=== PATIENT | female | born 1975 | race Caucasian/White ===

== ENCOUNTER 2017-02-26 00:07 | Emergency (ER) | payer OTHER ==
[~2017-02-26] VITALS: Ht 167.6 cm; Wt 59.0 kg
[2017-02-26] MEDS ORDERED: HYDROmorphone PF 1 MG/ML DISP.SYRIN IV/SQ PRN (00:45)
[2017-02-26] MEDS ORDERED: 0.9 % SODIUM CHLORIDE 10 ML DISP.SYRIN. IV PRN (00:45)
--- NOTE | 2017-02-26 00:52 | PHYS DOC ---
Past History Past Medical History: Anxiety, Depression Past Surgical History: No Surgical History Smoking: Non-smoker Alcohol Use: None Drug Use: None Adult General Chief Complaint Chief Complaint: FLANK PAIN [facility] HPI This patient is a pleasant 41-year-old female with history of depression and anxiety who is a 002 last menstrual period is about 14 days late presents with right lower quadrant abdominal pain that began earlier today after having sexual intercourse with her . She is noted increased pain or last several hours localized in the right lower quadrant as got progressively worse with nausea without vomiting or diarrhea or dysuria urgency or frequency she said there is some pressure when she urinates but not clearly dysuria. She denies any vaginal bleeding or discharge denies any prior history of the same. She does recall a family history of ovarian cysts. She describes this pain as dull and achy without radiation to the flank or the rectum. It is not change with food or position but it is worsened with direct pressure over the abdomen. She did also say that she has some fullness there without clear distention of her abdomen. She denies any consumption of raw food, sick contacts, recent antibiotics. She's not had any travel outside the country. She's never had symptoms quite like this in the past. The patient's pain is not radiating from the flank to the abdomen. She just recently moved from [place] with her family in the last several days to [place]. Review of Systems Review of Systems Constitutional: Denies fever or chills [] Eyes: Denies change in visual acuity, redness, or eye pain [] HENT: Denies nasal congestion or sore throat [] Respiratory: Denies cough or shortness of breath [] Cardiovascular: No additional information not addressed in HPI [] GI: Planes of abdominal pain with nausea denies vomiting bloody stools or diarrhea. : Denies dysuria or hematuria she does have some mild urgency Musculoskeletal: Denies back pain or joint pain [] Integument: Denies rash or skin lesions [] Neurologic: Denies headache, focal weakness or sensory changes [] Endocrine: Denies polyuria or polydipsia [] Current Medications Current Medications Current Medications Medications (Trade) Dose Ordered Sig/Ellen Start Time Stop Time Status Last Admin Dose Admin Hydromorphone HCl (Dilaudid) 0.5 mg PRN Q15MIN PRN 02/26/17 00:45 02/27/17 00:44 UNV Ondansetron HCl (Zofran) 4 mg 1X ONCE 02/26/17 00:45 02/26/17 00:46 UNV Sodium Chloride (Normal Saline Flush) 10 ml QSHIFT PRN 02/26/17 00:45 UNV Physical Exam Physical Exam Constitutional: Well developed, well nourished, patient is icing uncomfortable and mildly stressed but nontoxic in appearance. HENT: Normocephalic, atraumatic, bilateral external ears normal, oropharynx moist, no oral exudates, nose normal. [] Eyes: PERRLA, EOMI, conjunctiva normal, no discharge. [] Neck: Normal range of motion, no tenderness, supple, no stridor. [] Cardiovascular:Heart rate regular rhythm, no murmur [] Lungs & Thorax: Bilateral breath sounds clear to auscultation [] Abdomen: Bowel sounds normal, soft, patient does have some tenderness increased bowel sounds over the right lower quadrant. There is no clear Kim's or McBurney's point tenderness to palpation or Rovsing sign or obturator sign Skin: Warm, dry, no erythema, no rash. [] Back: No tenderness, no CVA tenderness. [] Extremities: No tenderness, no cyanosis, no clubbing, ROM intact, no edema. [] Neurologic: Alert and oriented X 3, normal motor function, normal sensory function, no focal deficits noted. [] Psychologic: Affect normal, judgement normal, she is mildly anxious Current Patient Data Vital Signs Vital Sign - Last 24 Hours 02/26/17 02/26/17 00:10 01:40 Temp 98.2 Pulse 90 Resp 20 20 Pulse Ox 98 98 O2 Delivery Room Air Room Air Lab Results Laboratory Tests Test 02/26/17 00:45 02/26/17 00:59 02/26/17 01:11 Urine Collection Type Unknown Urine Color Yellow Urine Clarity Clear Urine pH 6.0 Urine Specific [place] 1.015 Urine Protein Neg (NEG-TRACE) Urine Glucose (UA) Neg mg/dL (NEG) Urine Ketones (Stick) Neg mg/dL (NEG) Urine Blood Neg (NEG) Urine Nitrite Neg (NEG) Urine Bilirubin Neg (NEG) Urine Urobilinogen Dipstick 1 mg/dL (0.2 mg/dL) Urine Leukocyte Esterase Neg (NEG) Urine RBC 0 /HPF (0-2) Urine WBC Occ /HPF (0-4) Urine Squamous Epithelial Cells Few /LPF Urine Bacteria 0 /HPF (0-FEW) POC Urine HCG, Qualitative hcg negative (Negative) White Blood Count 10.0 x10^3/uL (4.0-11.0) Red Blood Count 4.71 x10^6/uL (3.50-5.40) Hemoglobin 11.4 g/dL (12.0-15.5) L Hematocrit 35.6 % (36.0-47.0) L Mean Corpuscular Volume 76 fL (79-100) L Mean Corpuscular Hemoglobin 24 pg (25-35) L Mean Corpuscular Hemoglobin Concent 32 g/dL (31-37) Red Cell Distribution Width 15.7 % (11.5-14.5) H Platelet Count 292 x10^3/uL (140-400) Neutrophils (%) (Auto) 77 % (31-73) H Lymphocytes (%) (Auto) 14 % (24-48) L Monocytes (%) (Auto) 7 % (0-9) Eosinophils (%) (Auto) 2 % (0-3) Basophils (%) (Auto) 1 % (0-3) Neutrophils # (Auto) 7.7 x10^3uL (1.8-7.7) Lymphocytes # (Auto) 1.4 x10^3/uL (1.0-4.8) Monocytes # (Auto) 0.7 x10^3/uL (0.0-1.1) Eosinophils # (Auto) 0.2 x10^3/uL (0.0-0.7) Basophils # (Auto) 0.1 x10^3/uL (0.0-0.2) Sodium Level 139 mmol/L (136-145) Potassium Level 4.0 mmol/L (3.5-5.1) Chloride Level 102 mmol/L (98-107) Carbon Dioxide Level 30 mmol/L (21-32) Anion Gap 7 (6-14) Blood Urea Nitrogen 10 mg/dL (7-20) Creatinine 0.7 mg/dL (0.6-1.0) Estimated GFR (Cockcroft-Gault) 93.2 BUN/Creatinine Ratio 14 (6-20) Glucose Level 103 mg/dL (70-99) H Calcium Level 9.3 mg/dL (8.5-10.1) Total Bilirubin 0.3 mg/dL (0.2-1.0) Aspartate Amino Transferase (AST) 12 U/L (15-37) L Alanine Aminotransferase (ALT) 14 U/L (14-59) Alkaline Phosphatase 72 U/L (46-116) Total Protein 7.8 g/dL (6.4-8.2) Albumin 4.2 g/dL (3.4-5.0) Albumin/Globulin Ratio 1.2 (1.0-1.7) Lipase 148 U/L (73-393) EKG EKG [] Radiology/Procedures Radiology/Procedures [] IMAGING REPORT Signed PATIENT: HARSHA GÓMEZ ACCOUNT: [id number] : 1975 LOCATION: ER AGE: 41 SEX: F EXAM STATUS: REG ER ORD. PHYSICIAN: FENG NUNEZ MD REASON: rlq ab pain PROCEDURE: CT ABD PELV W/ IV CONTRST ONLY EXAM: CT abdomen/pelvis with contrast. HISTORY: Right lower quadrant pain. TECHNIQUE: Computed tomography of the abdomen and pelvis was performed after the intravenous administration of 75 mL Omnipaque 300. COMPARISON: None. FINDINGS: Lung windows through the visualized portions of the bases reveal mild atelectasis. Bone windows reveal no suspicious lesions. A 5 mm hypoattenuating lesion in the right hepatic lobe is most likely a small cyst or hemangioma. The gallbladder, spleen, adrenal glands and pancreas are unremarkable. There is mild urothelial thickening along the left ureter. There is no hydronephrosis. No calculi are seen. The appendix is not clearly identified. There is no direct evidence of appendicitis. There is a small amount of free pelvic fluid. The ovaries are unremarkable by CT. There is no obstruction. IMPRESSION: 1. The appendix is not seen, but there is no direct evidence of appendicitis. 2. A small amount of free pelvic fluid may be physiologic. 3. Mild urothelial thickening along the left ureter. Correlate with urinalysis to assess for inflammation. *One or more of the following individualized dose reduction techniques were utilized for this examination: 1. Automated exposure control. 2. Adjustment of the mA and/or kV according to patient size. 3. Use of iterative reconstruction technique. Electronically signed by: Nelly Saldivar MD (02/26/2017 2:20 AM) DICTATED AND SIGNED BY: NELLY SALDIVAR MD DATE: 02/26/17 0204 CC: FENG NUNEZ MD; PCP,UNKNOWN ~ Course & Med Decision Making Course & Med Decision Making Pertinent Labs and Imaging studies reviewed. (See chart for details) Patient presents with flank pain on the right with concerning location of pain over the right lower quadrant. Patient's laboratory work and CT scan reviewed by me as well as urinalysis. I've also reviewed nurse's notes and vital signs. I concern upon presentation was possible appendicitis versus small bowel section versus ovarian pathology to include torsion ectopic UTI, kidney stone, pyelonephritis or diverticulitis. At this juncture upon reevaluation patient's pain is improved significantly. Urinalysis is clear for signs of infection or inflammation there is no reported cells. Patient's CT scan does not report any evidence of appendicitis on inflammation of the bowel. Although was not visualized completely there is no surrounding infectious inflammation consistent with appendicitis. There is no ovarian pathology identified patient is not by urinalysis. At this point patient does not have evidence of small bowel obstruction given the fact she continues to have flatus and bowel movements. The about abdominal pain been associated with increased air in the small bowel although does no signs of diverticulitis or other obstructive problems diarrheal illness patient will be given some medication to treat her crampy abdominal pain, her nausea without vomiting and her anxiety. Impression: Abdominal pain of unclear etiology. Nausea unclear etiology. Disposition discharge follow-up with local PCP in 24-48 hours. Precautions given asked to return for new or increasing symptoms blood in the stool urine or if she has any question concerns. [] Dragon Disclaimer Dragon Disclaimer This chart was dictated in whole or in part using Voice Recognition software in a busy, high-work load, and often noisy Emergency Department environment. It may contain unintended and wholly unrecognized errors or omissions. Departure Departure: Impression: Primary Impression: Abdominal pain Additional Impressions: Nausea Anxiety Disposition: 01 HOME, SELF-CARE Condition: IMPROVED Referrals: PCP,UNKNOWN (PCP) Patient Instructions: Abdominal Pain (Nonspecific), Anxiety and Panic Attacks, Nausea, Adult Additional Instructions: He is return for any new or increasing symptoms or continued localized pain in the right lower quadrant. Although your white blood cell count and CT scan did not represent appendicitis at this time this does not develop disease in the future. I would advise you to return for any fever greater than 12.2 blood in her stool difficulty urinating or if you have any questions or concerns. Scripts Ondansetron (ZOFRAN ODT) 8 Mg Tab.rapdis 8 MG PO BID for 7 Days Prov: FENG NUNEZ MD 02/26/17 Dicyclomine Hcl (BENTYL) 10 Mg Capsule 1 CAP PO TID, #15 CAP.EC Prov: FENG NUNEZ MD 02/26/17 Lorazepam (ATIVAN) 1 Mg Tablet 1 MG PO TID for 5 Days, #15 TAB Prov: FENG NUNEZ MD 02/26/17 Hydrocodone Bit/Acetaminophen (HYDROCODONE-APAP 5-325 ) 1 Each Tablet 1 TAB PO PRN Q6HRS Y for PAIN for 5 Days, #10 TAB 0 Refills Prov: FENG NUNEZ MD 02/26/17 Problem Qualifiers FENG NUNEZ MD February 26, 2017 00:52
[2017-02-26] MEDS ORDERED: CONTRAST GIVEN MC PRN (01:15)
[2017-02-26 01:29] LABS: BACTERIA,URINE 0 /HPF (0-FEW); BILIRUBIN,URINE NEG (NEG); CLARITY,URINE CLEAR; COLOR,URINE YELLOW; GLUCOSE,URINE NEG (NEG); NITRITE,URINE NEG (NEG); RBC,URINE 0 /HPF (0-2); SQUAMOUS EPITHELIAL CELL,UR FEW /LPF; UROBILINOGEN,URINE 1 mg/dL (0.2 mg/dL); WBC,URINE OCC /HPF (0-4)
[2017-02-26] MEDS ORDERED: ONDANSETRON PF 4 MG/2 ML VIAL. IV ONE (01:30)
[2017-02-26] MEDS ORDERED: IOHEXOL 300 MG/ML 75 ML VIAL. IV ONE (01:30)
[2017-02-26] MEDS ORDERED: IV NORMAL SALINE 1,000ML 1,000 ML IV SCH (01:30)
[2017-02-26] MEDS ORDERED: LORazepam 2 MG/ML VIAL IV ONE (01:30)
[2017-02-26 01:36] LABS: BASO # 0.1 x10^3/uL (0.0-0.2); BASO % 1 % (0-3); EOS # 0.2 x10^3/uL (0.0-0.7); EOS % 2 % (0-3); HEMATOCRIT 35.6 % (36.0-47.0); HEMOGLOBIN 11.4 g/dL (12.0-15.5); LYMPH # 1.4 x10^3/uL (1.0-4.8); LYMPH % 14 % (24-48); MEAN CORPUSCULAR HEMOGLOBIN 24 pg (25-35); MEAN CORPUSCULAR HGB CONC 32 g/dL (31-37); MEAN CORPUSCULAR VOLUME 76 fL (79-100); MONO # 0.7 x10^3/uL (0.0-1.1); MONO % 7 % (0-9); NEUT # 7.7 x10^3uL (1.8-7.7); NEUT % 77 % (31-73); PLATELET COUNT 292 x10^3/uL (140-400); RED BLOOD COUNT 4.71 x10^6/uL (3.50-5.40); RED CELL DISTRIBUTION WIDTH 15.7 % (11.5-14.5)
[2017-02-26 01:46] LABS: ALBUMIN 4.2 g/dL (3.4-5.0); ALBUMIN/GLOBULIN RATIO 1.2 (1.0-1.7); CALCIUM 9.3 mg/dL (8.5-10.1); CREATININE 0.7 mg/dL (0.6-1.0); GFR 93.2; TOTAL BILIRUBIN 0.3 mg/dL (0.2-1.0); TOTAL PROTEIN 7.8 g/dL (6.4-8.2)
--- NOTE | 2017-02-26 02:23 | RAD ---
EXAM: CT abdomen/pelvis with contrast. HISTORY: Right lower quadrant pain. TECHNIQUE: Computed tomography of the abdomen and pelvis was performed after the intravenous administration of 75 mL Omnipaque 300. COMPARISON: None. FINDINGS: Lung windows through the visualized portions of the bases reveal mild atelectasis. Bone windows reveal no suspicious lesions. A 5 mm hypoattenuating lesion in the right hepatic lobe is most likely a small cyst or hemangioma. The gallbladder, spleen, adrenal glands and pancreas are unremarkable. There is mild urothelial thickening along the left ureter. There is no hydronephrosis. No calculi are seen. The appendix is not clearly identified. There is no direct evidence of appendicitis. There is a small amount of free pelvic fluid. The ovaries are unremarkable by CT. There is no obstruction. IMPRESSION: 1. The appendix is not seen, but there is no direct evidence of appendicitis. 2. A small amount of free pelvic fluid may be physiologic. 3. Mild urothelial thickening along the left ureter. Correlate with urinalysis to assess for inflammation. *One or more of the following individualized dose reduction techniques were utilized for this examination: 1. Automated exposure control. 2. Adjustment of the mA and/or kV according to patient size. 3. Use of iterative reconstruction technique. Electronically signed by: Cornell Saldivar MD (02/26/2017 2:20 AM)
[2017-02-26] MEDS ORDERED: LORA-434 PO (02:44)
[2017-02-26] MEDS ORDERED: HYDR-2758 PO (02:44)
[2017-02-26] MEDS ORDERED: ONDA8TAB12 PO (02:44)
[2017-02-26] MEDS ORDERED: DICY10CA53 PO (02:44)
[2017-02-26 02:50] VITALS: BP 101/64
== END 2017-02-26 02:55 | disposition home or self-care (01) ==
LOC: ER 00:07
DX: R10.31 Right lower quadrant pain (principal); R11.0 Nausea; F41.9 Anxiety disorder, unspecified
CPT/HCPCS: 36415; 74177; 80053; 81001; 83690; 84703; 85027; 96361; 96374; 96375; 99285; J1170; J2060; J2405; Q9967; 81025; J7030